=== PATIENT | male | born 1955 | race Caucasian/White ===

== ENCOUNTER → 2017-01-11 | Outpatient (CLI) | payer OTHER ==
--- NOTE | 2017-01-11 16:27 | RAD ---
MRI Cervical Spine Without Contrast History: Neck pain with right radiculopathy for one month Technique: Multiplanar, multi sequential noncontrast MR imaging was performed of the cervical spine. Comparison: None Findings: There is some motion degradation. Cervical vertebral body stature is preserved. Cervical cord caliber is within normal limits without convincing focal signal abnormality. There is moderate degenerative disc disease C5-C6 and to a somewhat lesser degree at C6-7. There is negligible anterior spondylolisthesis C2-3 and C7-T1. There is no significant abnormality of the cervical medullary junction. There is no significant marrow edema. C2-C3: There is moderate to severe left facet degenerative change, to a lesser degree on the right. Spinal canal is adequate. There is minimal narrowing of the left neural foramen, right neural foramen adequate. C3-C4: There is disc osteophyte complex greater in the right lateral recess. Central canal is borderline 10 mm, mild right lateral recess stenosis. There is bilateral facet hypertrophic change. There is right uncovertebral degenerative change. There is fairly severe narrowing of the right neural foramen, likely mild narrowing on the left. C4-C5: There is minimal disc osteophyte complex and more central protrusion, small posterior annular tear. Central canal is minimally narrowed to 8 to 9 mm. There is right greater than left facet degenerative change. There is mild uncovertebral degenerative change. There is probable moderate to severe right and at least mild left neural foramina compromise. C5-C6: There is disc osteophyte complex and bulge. Central canal is narrowed to 7-8 mm. There is effacement of ventral subarachnoid space and contact of the ventral cord. There is moderate to severe facet degenerative change. There is bilateral uncovertebral degenerative change. There is fairly severe neural foramina compromise bilaterally. C6-C7: There is disc osteophyte complex and bulge. Central canal is narrowed to 7-8 mm. There is effacement of ventral subarachnoid space and contact of the ventral cord. There is uncovertebral degenerative change greater on the right. There is bilateral facet degenerative degenerative change. There is likely moderate to severe, left greater than right neural foramina compromise. C7-T1: Spinal canal is adequate. There is facet degenerative change. Right neural foramen is adequate. There is moderate to severe narrowing of the left neural foramen. T1-2: This level was not included on the axial images. There is a shallow posterior protrusion, mild narrowing of the spinal canal. There is uncovertebral degenerative change which contributes to probable at least moderate right and moderate to severe left neural foramina compromise. Impression: 1. There is spinal stenosis greatest at C5-C6 and C6-7 on the order of 7 to 8 mm, to lesser degree at C4-5. 2. There is degenerative disc disease greatest at C5-C6 and C6-7. There is multilevel spondylosis. 3. Accurate evaluation of the neural foramina is limited due to motion, suspected multilevel cervical neural foramina compromise due to facet and uncovertebral degenerative change. Neural foramina compromise is greatest on the right at C3-4 and C4-5, bilaterally at C5-C6, C6-7, T1-T2, and on the left at C7-T1. Electronically signed by: Giovanny Leach MD (01/11/2017 4:23 PM) [email or web address]
== END | disposition home or self-care (01) ==
LOC: MRI 15:13
PROVIDERS: ATTEND Nurse Practitioner Family
DX: M48.02 Spinal stenosis, cervical region (principal); M50.122 Cervical disc disorder at C5-C6 level with radiculopathy; M50.123 Cervical disc disorder at C6-C7 level with radiculopathy; M47.892 Other spondylosis, cervical region
CPT/HCPCS: 72141

== ENCOUNTER → 2017-02-15 | Outpatient (CLI) | payer OTHER ==
--- NOTE | 2017-02-15 16:41 | KCIC ---
INDICATION: Gait disturbance. Right leg numbness for 3 years. No prior surgical intervention. TECHNIQUE: Sagittal T1, sagittal T2, sagittal STIR, axial T1, and axial T2 sequences are provided. No comparison is available. FINDINGS: Patient appears to have transitional anatomy. Rudimentary disc is noted at what is considered S1-S2. Previous reports may have utilized a different numbering system. Conus medullaris is considered to terminate at L1-L2. There is no malalignment. There is endplate edema at L4-L5. Minimal edema in the inferior endplate of L1 is noted as well. Schmorl's nodes are noted throughout the lower thoracic and lumbar spine. There is diffuse disc desiccation. Disc height is relatively maintained. The conus medullaris is normal in signal intensity and in position. Subcutaneous edema is noted. Probable cyst in the right kidney is noted. It is exophytic measuring up to 16 mm. The numbering system also assumes 5 lumbar type vertebral bodies. Findings by individual level are as follows: L1-L2: Minimal disc bulge and facet hypertrophy are noted without canal or foraminal compromise. L2-L3: There is a mild disc bulge and there is facet hypertrophy on the left. There is mild left lateral recess narrowing. There is minimal left foraminal narrowing. L3-L4: Disc bulge is noted. Mild facet hypertrophy is greater on the left. There is no canal or foraminal compromise. L4-L5: There is a disc bulge. There is moderate facet and ligamentum flavum hypertrophy. There is prominent epidural fat. Thecal sac is compressed down to 9 mm, mostly secondary to the prominent epidural fat. There is minimal CSF surrounding the nerve roots at this level. There is [id number] right and mild left foraminal narrowing. L5-S1: Facet hypertrophy is greater on the left. There is minimal left foraminal narrowing. There is a minimal disc bulge but no canal stenosis. IMPRESSION: 1. Degenerative changes in the lumbar spine are greatest at L4-L5. 2. Apparent transitional anatomy. Previous reports may have utilized a different numbering system. Electronically signed by: Yobany Lira MD (02/15/2017 4:38 PM) [id number]
== END | disposition home or self-care (01) ==
LOC: KCIC MRI 15:33
PROVIDERS: ATTEND Neurological Surgery
DX: M47.896 Other spondylosis, lumbar region (principal); M51.46 Schmorl's nodes, lumbar region; R26.9 Unspecified abnormalities of gait and mobility; R20.0 Anesthesia of skin
CPT/HCPCS: 72148

== ENCOUNTER → 2017-12-21 | Outpatient (CLI) | payer OTHER ==
[~2017-12-21] MED LIST: IOHEXOL 240 MG/ML 50ML VIAL. PO ONE; IOHEXOL 300 MG/ML 100ML VIAL. IV ONE
--- NOTE | 2017-12-21 15:48 | KCIC ---
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 Comparison: None. Technique: After administration of oral and intravenous contrast, however. mL Omnipaque-300, CT of the abdomen and pelvis was performed. Exposure: One or more of the following individualized dose reduction techniques were utilized for this examination: 1. Automated exposure control 2. Adjustment of the mA and/or kV according to patient size 3. Use of iterative reconstruction technique Findings: Liver, spleen, pancreas, gallbladder, and bilateral adrenal glands are unremarkable. Bilateral kidneys enhance symmetrically. 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 Inferior pole of the left kidney demonstrates 1 mm nephrolith. The interpolar region of the right kidney demonstrates 2.0 cm cyst. No renal obstruction is identified. Urinary bladder is unremarkable. Prostate is enlarged. Colonic diverticulosis is noted, but no diverticulitis is seen. Suture material is seen adjacent to the stomach, compatible with GIST removal. No abdominal or pelvic lymphadenopathy is seen. Appendix is without evidence of inflammation. No suspicious osseous lesions are seen. Degenerative changes are present. Impression: 1. No evidence of metastatic disease in the abdomen or pelvis. Electronically signed by: Dimitri Minor MD (12/21/2017 3:45 PM) [email or web address]
== END | disposition home or self-care (01) ==
LOC: KCIC CT 13:56
PROVIDERS: ATTEND Internal Medicine Hematology & Oncology
DX: C49.A2 Gastrointestinal stromal tumor of stomach (principal); N40.0 Benign prostatic hyperplasia without lower urinary tract symptoms; K57.30 Diverticulosis of large intestine without perforation or abscess without bleeding; N20.0 Calculus of kidney; Z87.891 Personal history of nicotine dependence
CPT/HCPCS: 74177; Q9966; Q9967

== ENCOUNTER → 2019-01-30 | Outpatient (CLI) | payer OTHER ==
[~2019-01-30] MED LIST changes: +CONTRAST GIVEN. MC PRN
--- NOTE | 2019-01-30 16:01 | RAD ---
EXAM: CT Abdomen and Pelvis with IV contrast CLINICAL HISTORY: GASTROINTESTINAL STROMAL TUMOR. COMPARISON: 12/21/2017 TECHNIQUE: Helical CT of the abdomen and pelvis was performed following the administration of intravenous contrast. Axial, coronal and sagittal reformatted images were generated. PQRS compliance statement - One or more of the following individualized dose reduction techniques were utilized for this study: 1. Automated exposure control 2. Adjustment of the mA and/or kV according to patient size 3. Use of iterative reconstruction technique FINDINGS: Lower chest: Lung bases are clear Abdomen and Pelvis: 1.5 cm low-density right hepatic lobe lesion is grossly stable with associated regional hyperenhancement. Hepatic hypoattenuation likely steatosis. Spleen is normal in appearance. Adrenal glands are unremarkable. Pancreas and normal in appearance. Symmetric nephrograms. A 1.1 x 1.7 cm hypodense right lower pole renal lesion is seen, grossly stable. No hydronephrosis. No hydroureter. Prostate is markedly enlarged measuring 6.8 cm in transverse dimension. Diffuse bladder wall thickening may be seen with cystitis. Appendix is normal. Moderate colonic stool content is seen. No small or large bowel dilatation. No evidence for bowel obstruction. Colonic diverticula are seen. No evidence of acute diverticulitis. No abdominal or pelvic ascites. No abdominal or pelvic lymphadenopathy. Bones: Degenerative changes of the hip joints are seen. Degenerative changes of the spine are noted. No aggressive osseous lesion. IMPRESSION: 1. Diffuse bladder wall thickening, likely cystitis and/or from chronic outlet obstruction given enlarged prostate. 2. No abdominal or pelvic lymphadenopathy. Electronically signed by: Osvaldo Alfonso MD (01/30/2019 3:58 PM) [id number]
== END ==
LOC: CT 08:35
PROVIDERS: ATTEND Internal Medicine Hematology & Oncology
DX: C49.A2 Gastrointestinal stromal tumor of stomach (principal); K57.30 Diverticulosis of large intestine without perforation or abscess without bleeding; M16.0 Bilateral primary osteoarthritis of hip; M47.819 Spondylosis without myelopathy or radiculopathy, site unspecified; N40.0 Benign prostatic hyperplasia without lower urinary tract symptoms
CPT/HCPCS: 74177; Q9966; Q9967